=== PATIENT | female | born 1955 | race Caucasian/White ===

== ENCOUNTER 2018-03-17 05:51 | Day surgery (SDC) | payer BC ==
[2018-03-13 15:51] LABS: BASOPHILS % (AUTO) 0.5 % (0-1); EOSINOPHILS # (AUTO) 0.5 X10'3 (0-0.9); EOSINOPHILS % (AUTO) 5.7 % (0-6); LYMPHOCYTES # (AUTO) 2.6 X10'3 (1.1-4.8); LYMPHOCYTES % (AUTO) 29.1 % (21-51); MEAN CORPUSCULAR HEMOGLOBIN 30.5 PG (27.0-31.0); MEAN CORPUSCULAR HGB CONC 35.4 % (33.0-36.5); MEAN CORPUSCULAR VOLUME 86.2 FL (78-98); MONOCYTES # (AUTO) 0.6 X10'3 (0-0.9); MONOCYTES % (AUTO) 6.6 % (2-12); NEUTROPHILS # (AUTO) 5.2 X10'3 (1.8-7.7); NEUTROPHILS % (AUTO) 58.1 % (42-75); PRE OP HEMOGLOBIN 14.1 g/dL (12.0-16.0); PRE OP PLATELET COUNT 354 X10'3 (140-440); RED BLOOD COUNT 4.63 X10'6 (4.20-5.60); RED CELL DISTRIBUTION WIDTH 13.3 % (11.5-14.5)
[2018-03-13 16:06] LABS: ALBUMIN 3.8 G/DL (3.4-5.0); ALBUMIN/GLOBULIN RATIO 1.1 (1.1-1.5); ALKALINE PHOSPHATASE 80 IU/L (46-116); BLOOD UREA NITROGEN 16 MG/DL (7-18); BUN/CREATININE RATIO 18.2 (6.6-38.0); CALCIUM 9.3 MG/DL (8.5-10.1); CHLORIDE 103 MMOL/L (99-107); CREATININE 0.88 MG/DL (0.40-0.90); PRE OP ALT 37 U/L (30-65); PRE OP ANION GAP 6 (8-16); PRE OP AST 24 U/L (10-37); PRE OP BILIRUB, TOTAL 0.4 MG/DL (0.0-1.0); PRE OP GLUCOSE 105 MG/DL (70-104); PRE OP POTASSIUM 3.7 MMOL/L (3.4-5.1); PRE OP SODIUM 137 MMOL/L (135-145); TOTAL CARBON DIOXIDE 28.2 MMOL/L (24-32); TOTAL PROTEIN 7.2 G/DL (6.4-8.2); eGFR 65 ML/MIN
[2018-03-17] VITALS (17 sets, daily range): BP systolic 126–144; BP diastolic 61–87
[~2018-03-17] VITALS: Ht 157.5 cm; Wt 73.9 kg
[~2018-03-17 05:51] MED LIST: ESTR42.53 VG; ceFOXitin 2 GM ADDvantage bag 100 ML IV ONE; famotidine 20mg tablet PO ONE
[2018-03-17] MEDS ORDERED: LIDOcaine 1% (10mg/ml) 2ml vial ONE (06:16)
[2018-03-17] MEDS: ringers solution, lacted 1,000 ML IV SCH ×2 (06:27→11:59)
[2018-03-17] MEDS ORDERED: morphine 10mg/ml inj. ONE (06:50)
[2018-03-17] MEDS ORDERED: clindamycin phosphate 40gm vag cream ONE (06:50)
[2018-03-17] MEDS ORDERED: ceFAZolin 1000mg inj ONE (06:50)
[2018-03-17] MEDS ORDERED: LIDOcaine 1% 30ml preserv. free vial ONE (06:50)
[2018-03-17] MEDS ORDERED: BUPIVAcaine/PF 2.5mg/ml (0.25%) 10ml vial ONE (06:50)
[2018-03-17] MEDS ORDERED: vasoPRESSIN 20 units/ml inj. ONE (06:51)
[2018-03-17] MEDS ORDERED: midazolam 2 mg/2 ml injection ONE (07:56)
[2018-03-17] MEDS ORDERED: fentaNYL /PF 50mcg/ml 5ml ampule ONE (07:56)
[2018-03-17] MEDS ORDERED: propofol inj 20 ML IV ONE (07:57)
[2018-03-17] MEDS ORDERED: rocuronium 10mg/ml inj IV ONE (07:57)
[2018-03-17] MEDS ORDERED: LIDOcaine 2% (20mg/ml) 5ml vial ONE (07:57)
[2018-03-17] MEDS ORDERED: ondansetron/PF 4mg/2ml inj ONE (08:12)
[2018-03-17] MEDS ORDERED: fluoroscein sod 10% (100mg/ml) 5ml vial ONE (08:12)
[2018-03-17] MEDS ORDERED: sevoflurane 250ml liquid IH ONE (08:12)
[2018-03-17] MEDS ORDERED: neostigmine methylsulfate 1 MG/ML 10ml vial ONE (08:12)
[2018-03-17] MEDS ORDERED: glycopyrrolate 0.2mg/ml inj ONE (08:12)
[2018-03-17] MEDS ORDERED: dexamethasone sod phosphate 4mg/ml inj. ONE (08:32)
[2018-03-17] MEDS ORDERED: ePHEDrine 50MG/ML INJ. ONE (08:32)
[2018-03-17] MEDS ORDERED: ringers solution, lacted 1,000 ML IV SCH ×2 (08:53→10:36)
[2018-03-17] MEDS ORDERED: ondansetron/PF 4mg/2ml inj IV PRN ×2 (08:55→10:40)
[2018-03-17] MEDS ORDERED: proCHLORperazine 10 MG/2 ml inj IV PRN (08:55)
[2018-03-17] MEDS ORDERED: morphine 4 MG/ML inj SYRINge IV PRN ×2 (08:55)
[2018-03-17] MEDS ORDERED: meperidine/PF 25mg/ml syringe IV PRN ×3 (08:55)
[2018-03-17] MEDS ORDERED: HYDROcodone/acetaminophen 5mg/325mg tablet PO PRN ×2 (10:40)
[2018-03-17] MEDS ORDERED: CADD PCA waste documentation MC PRN (10:40)
[2018-03-17] MEDS ORDERED: normal saline 500ml IV soln 500 ML IV PRN (10:40)
[2018-03-17] MEDS ORDERED: naloxone 0.4 mg/ml inj IV PRN (10:40)
[2018-03-17] MEDS ORDERED: magnesium hydroxide 30ml (MOM) UD suspension PO PRN (10:40)
[2018-03-17] MEDS ORDERED: temazepam 15mg capsule PO PRN (10:40)
[2018-03-17] MEDS ORDERED: estradiol 0.1mg patch.TDWK TD SCH (10:40)
[2018-03-17] MEDS: HYDROmorphone/NS 1 mg/ml CADD 50 ML IV SCH ×5 (11:29→19:00)
[2018-03-17] MEDS: simethicone 80mg chew tab PO SCH ×2 (12:25→17:10)
[2018-03-18] VITALS: BP 98/51
[2018-03-18] MEDS: ketorolac trometh. 30mg/ml inj. IV PRN ×2 (01:56→07:41)
[2018-03-18 04:30] VITALS: BP 108/54
[2018-03-18 05:54] LABS: BASOPHILS % (AUTO) 0 % (0-1); EOSINOPHILS # (AUTO) 0.2 X10'3 (0-0.9); HEMATOCRIT 34.6 % (35.0-45.0); HEMOGLOBIN 12.2 g/dl (12.0-16.0); LYMPHOCYTES # (AUTO) 1.1 X10'3 (1.1-4.8); LYMPHOCYTES % (AUTO) 7.3 % (21-51); MEAN CORPUSCULAR HEMOGLOBIN 30.2 PG (27.0-31.0); MEAN CORPUSCULAR HGB CONC 35.2 % (33.0-36.5); MEAN CORPUSCULAR VOLUME 85.7 FL (78-98); MEAN PLATELET VOLUME 8.6 FL (7.4-10.4); MONOCYTES # (AUTO) 1.1 X10'3 (0-0.9); MONOCYTES % (AUTO) 7.1 % (2-12); NEUTROPHILS # (AUTO) 12.8 X10'3 (1.8-7.7); NEUTROPHILS % (AUTO) 84.6 % (42-75); PLATELET COUNT 328 X10'3 (140-440); RED BLOOD COUNT 4.03 X10'6 (4.20-5.60); RED CELL DISTRIBUTION WIDTH 13.4 % (11.5-14.5); WHITE BLOOD COUNT 15.2 X10'3 (4.5-11.0)
[2018-03-18] MEDS: simethicone 80mg chew tab PO SCH ×2 (07:41→13:24)
[2018-03-18 08:00] VITALS: BP 121/58
[2018-03-18 11:27] VITALS: BP 107/46
== END 2018-03-18 16:00 | disposition home or self-care (01) ==
LOC: PAS 05:51 → SUR 3N 10:36 → PAS 03-18 16:00
PROVIDERS: ATTEND Specialist
DX: N80.0 Endometriosis of uterus (principal); N39.46 Mixed incontinence; N81.4 Uterovaginal prolapse, unspecified; N73.6 Female pelvic peritoneal adhesions (postinfective); M19.90 Unspecified osteoarthritis, unspecified site; E66.9 Obesity, unspecified; Z68.29 Body mass index [BMI] 29.0-29.9, adult; Z98.51 Tubal ligation status; Z90.49 Acquired absence of other specified parts of digestive tract; Z90.89 Acquired absence of other organs; Z79.891 Long term (current) use of opiate analgesic; Z87.891 Personal history of nicotine dependence; Z98.890 Other specified postprocedural states; Z79.899 Other long term (current) drug therapy
CPT/HCPCS: 36415; 57240; 57283; 57288; 58552; 80053; 85025; 85610; 85730; 86885; 86900; 86901; A4315; A4344; A4355; C1771; J0690; J0694; J1100; J1170; J1885; J2001; J2250; J2270; J2405; J2704; J2710; J3010; J3490; J7030; J7120; A6250; A7000